=== PATIENT | female | born 2005 | race Caucasian/White ===

== ENCOUNTER 2024-07-18 13:25 | Emergency (ER) | payer OTHER ==
[2024-07-18 13:40] VITALS: RESP 18
--- NOTE | 2024-07-18 13:58 | ED ---
Neuro HPI - General Chief Complaint: Neuro Symptoms/Deficit Stated Complaint: Left eye blurry Time Seen by Provider: 07/18/24 13:55 Source: patient, RN notes reviewed Mode of arrival: ambulatory Limitations: no limitations - History of Present Illness Is the patient presenting with stroke symptoms?: No Initial Comments: 19-year-old female presenting for vision changes of left eye. States she woke up this morning with blurry vision in left eye and foreign body sensation. States she slept with a eye mask last night. [facility] was seen [facility] where they performed a fluorescein stain and discharged her with ophth almology follow-up on Saturday. States when she got home she noticed her left eye was more dilated than her right side which prompted her to come to the ER for further evaluation. She has never had this before. Denies contacts or glasses. Denies headache, fever, lightheadedness, nasal congestion, slurred speech, focal weaknesses. States she has a history of anxiety and bipolar disorder, no other health conditions. - Related Data Allergies/Adverse Reactions: Allergies Allergy/AdvReac Type Severity Reaction Status Date / Time No Known Allergies Allergy Verified 07/18/24 13:36 Review of Systems ROS Statement: Those systems with pertinent positive or pertinent negative responses have been documented in the HPI. ROS Other: All systems not noted in ROS Statement are negative. General Exam Limitations: no limitations General appearance: alert, in no apparent distress Head exam: Present: atraumatic, normocephalic, normal inspection Eye exam: Present: normal appearance, EOMI. Absent: PERRL (Left pupil visibly larger than right pupil. Reacts and accommodates to light bilaterally.), scleral icterus, conjunctival injection, periorbital swelling Pupils: Present: normal accommodation, unequal, other (Negative fluorescein stain, average intraocular pressure 20) ENT exam: Present: normal exam, mucous membranes moist Respiratory exam: Present: normal lung sounds bilaterally. Absent: respiratory distress, wheezes, rales, rhonchi, stridor Cardiovascular Exam: Present: regular rate, normal rhythm, normal heart sounds. Absent: systolic murmur, diastolic murmur, rubs, gallop, clicks Neurological exam: Present: alert, oriented X3, CN II-XII intact Psychiatric exam: Present: normal affect, normal mood Skin exam: Present: warm, dry, intact, normal color. Absent: rash Stroke MDM - Lab Data Result diagrams: 07/18/24 15:01 07/18/24 15:01 Lab Results 07/18/24 07/18/24 07/18/24 Range/Units 15:01 15:01 15:01 WBC 9.9 (4.0-11.0) k/uL RBC 4.60 (3.80-5.40) m/uL Hgb 14.3 (11.4-16.0) gm/dL Hct 42.7 (34.0-46.0) % MCV 92.9 (80.0-100.0) fL MCH 31.0 (25.0-35.0) pg MCHC 33.4 (31.0-37.0) g/dL RDW 11.6 (11.5-15.5) % Plt Count 351 (150-450) k/uL MPV 7.1 Neutrophils % 63 % Lymphocytes % 29 % Monocytes % 5 % Eosinophils % 1 % Basophils % 0 % Neutrophils # 6.3 (1.3-7.7) k/uL Lymphocytes # 2.9 (1.0-4.8) k/uL Monocytes # 0.5 (0-1.0) k/uL Eosinophils # 0.1 (0-0.7) k/uL Basophils # 0.0 (0-0.2) k/uL PT 11.0 (10.0-12.5) sec INR 1.0 (<1.2) APTT 23.2 (22.0-30.0) sec Sodium 139 (137-145) mmol/L Potassium 4.0 (3.5-5.1) mmol/L Chloride 101 (98-107) mmol/L Carbon Dioxide 26 (22-30) mmol/L Anion Gap 12 mmol/L BUN 10 (7-17) mg/dL Creatinine 0.59 (0.52-1.04) mg/dL Est GFR (CKD-EPI)AfAm >90 (>60 ml/min/1.73 sqM) Est GFR (CKD-EPI)NonAf >90 (>60 ml/min/1.73 sqM) Glucose 93 (74-99) mg/dL Calcium 10.1 (8.4-10.2) mg/dL Total Bilirubin 0.9 (0.2-1.3) mg/dL AST 24 (14-36) U/L ALT 18 (4-34) U/L Alkaline Phosphatase 48 (38-126) U/L Total Protein 8.4 H (6.3-8.2) g/dL Albumin 5.2 H (3.5-5.0) g/dL - Medical Decision Making Was pt. sent in by a medical professional or institution ([facility], [employer], urgent care, hospital, or skilled nursing...) When possible be specific @ -No Did you speak to anyone other than the patient for history (EMS, parent, family, police, friend...)? What history was obtained from this source @ -No Did you review nursing and triage notes (agree or disagree)? Why? @ -I reviewed and agree with nursing and triage notes Were old charts reviewed (outside hosp., previous admission, EMS record, old EKG, old radiological studies, urgent care reports/EKG's, skilled nursing records)? Report findings @ -No old charts were reviewed Differential Diagnosis (chest pain, altered mental status, abdominal pain women, abdominal pain men, vaginal bleeding, weakness, fever, dyspnea, syncope, headache, dizziness, GI bleed, back pain, seizure, CVA, palpatations, mental health, musculoskeletal)? @ -Corneal abrasion, corneal ulceration, foreign body, anisocoria, MS, optic neuritis, aneurysm EKG interpreted by me (3pts min.). @ -None X-rays interpreted by me (1pt min.). @ -None done CT interpreted by me (1pt min.). @ -CT/CTA brain negative for acute process U/S interpreted by me (1pt. min.). @ -None done What testing was considered but not performed or refused? (CT, X-rays, U/S, labs)? Why? @ -None What meds were considered but not given or refused? Why? @ -None Did you discuss the management of the patient with other professionals (professionals i.e. [facility], [facility], lab, RT, psych nurse, pediatric social worker, addressograph operator, teacher, quarantine officer, machine adjuster leader case trim)? Give summary @ -No Was smoking cessation discussed for >3mins.? @ -No Was critical care preformed (if so, how long)? @ -No Were there social determinants of health that impacted care today? How? (Homelessness, low income, unemployed, alcoholism, drug addiction, transportation, low edu. Level, literacy, decrease access to med. care, retirement, rehab)? @ -No Was there de-escalation of care discussed even if they declined (Discuss DNR or withdrawal of care, Hospice)? DNR status @ -No What co-morbidities impacted this encounter? (DM, HTN, Smoking, COPD, CAD, Cancer, CVA, ARF, Chemo, Hep., AIDS, mental health diagnosis, sleep apnea, morbid obesity)? @ -None Was patient admitted / discharged? Hospital course, mention meds given and route, prescriptions, significant lab abnormalities, going to OR and other pertinent info. @ -Discharge. This is a 19-year-old female presenting for vision changes of left eye since this morning. Patient states she slept with an eye mask last night and woke up with foreign body sensation and blurriness in left eye. Patient was seen at urgent care where they performed a fluorescein stain and discharged her. States when she got home she noticed her left pupil was larger than her right. No other neurological deficits. Notable anisocoria on examination. Normal ipsilateral and contralateral accommodation to light. Fluorescein stain negative for abrasions or ulcerations. Left intraocular pressure 20. Visual acuity 20/20 right and bilateral, 20/30 left. Lab work unremarkable. CT/CTA brain negative for acute process. Upon reevaluation, anisocoria has resolved. Results discussed with patient. I believe it is safe to discharge patient home as anisocoria has resolved and there is no sign of emergent etiology on workup. Advise close follow-up with ophthalmology on Saturday. Appropriate return precautions discussed. Case was discussed in detail with my ED attending Dr. Campa. Undiagnosed new problem with uncertain prognosis? @ -No Drug Therapy requiring intensive monitoring for toxicity (Heparin, Nitro, Insulin, Cardizem)? @ -No Were any procedures done? @ -No Diagnosis/symptom? @ -Anisocoria Acute, or Chronic, or Acute on Chronic? @ -Acute Uncomplicated (without systemic symptoms) or Complicated (systemic symptoms)? @ -Uncomplicated Side effects of treatment? @ -No Exacerbation, Progression, or Severe Exacerbation? @ -No Poses a threat to life or bodily function? How? (Chest pain, [place], PR, pneumonia, PE, COPD, DKA, ARF, appy, cholecystitis, CVA, Diverticulitis, Homicidal, Suicidal, threat to staff... and all critical care pts) @ -Unlikely at this time Past Medical History Past Medical History: No Reported History Past Surgical History: Ear Surgery Smoking Status: Never smoker Past Alcohol Use History: None Reported Past Drug Use History: None Reported Course Vital Signs 07/18/24 13:36 Temperature 98.3 F Pulse Rate 84 Respiratory 18 Rate Blood Pressure 116/75 O2 Sat by Pulse 97 Oximetry Disposition Clinical Impression: Anisocoria Disposition: HOME SELF-CARE Condition: Stable Additional Instructions: Follow-up with ophthalmology on Saturday as discussed. Please return to the Emergency Department if symptoms worsen or any other concerns. Is patient prescribed a controlled substance at d/c from ED?: No Referrals: None,Stated [Primary Care Provider] - 1-2 days Logan Garnett MD [STAFF PHYSICIAN] - 1-2 days Time of Disposition: 15:57
[2024-07-18] MEDS: ACETAMINOPHEN TAB 325 MG TAB PO STA (14:06)
[2024-07-18] MEDS: PROPARACAINE 0.5% OPHTH DROPS 15 ML BTL LEFT EYE STA (14:06)
[2024-07-18] MEDS: FLUORESCEIN STRIPS 1 MG STRIP LEFT EYE ONE (14:06)
[2024-07-18 15:11] LABS: Basophils % (A) 0 %; Eosinophils # (A) 0.1 k/uL (0-0.7); Eosinophils % (A) 1 %; HCT 42.7 % (34.0-46.0); HGB 14.3 gm/dL (11.4-16.0); Lymphocytes # (A) 2.9 k/uL (1.0-4.8); Lymphocytes % (A) 29 %; MCHC 33.4 g/dL (31.0-37.0); MCV 92.9 fL (80.0-100.0); Mean Platelet Volume 7.1; Monocytes # (A) 0.5 k/uL (0-1.0); Monocytes % (A) 5 %; Neutrophils # (A) 6.3 k/uL (1.3-7.7); Neutrophils % (A) 63 %; Platelet Count 351 k/uL (150-450); RDW 11.6 % (11.5-15.5); WBC 9.9 k/uL (4.0-11.0)
[2024-07-18 15:20] LABS: ALT 18 U/L (4-34); AST 24 U/L (14-36); African American GFR (CKD) >90 (>60 ml/min/1.73 sqM); Albumin 5.2 g/dL (3.5-5.0); Alkaline Phosphatase 48 U/L (38-126); Anion Gap 12 mmol/L; Blood Urea Nitrogen 10 mg/dL (7-17); Calcium 10.1 mg/dL (8.4-10.2); Carbon Dioxide 26 mmol/L (22-30); Chloride 101 mmol/L (98-107); Glucose 93 mg/dL (74-99); Non-African American GFR(CKD) >90 (>60 ml/min/1.73 sqM); Sodium 139 mmol/L (137-145); Total Bilirubin 0.9 mg/dL (0.2-1.3); Total Protein 8.4 g/dL (6.3-8.2)
[2024-07-18 15:31] LABS: Partial Thromboplastin Time 23.2 sec (22.0-30.0)
--- NOTE | 2024-07-18 15:35 | CT ---
EXAMINATION TYPE: CT brain wo con DATE OF EXAM: 07/18/2024 3:20 PM COMPARISON: None. CLINICAL INDICATION: Female, 19 years old with history of Anisocoria, Blurry vision in L eye. L pupil is dilated. Denies headache, dizziness, slurred speech, weakness, or numbness. TECHNIQUE: Brain: Axial CT images of the brain were obtained with coronal and sagittal reformats created and rev iewed. Contrast used: None. Oral contrast used: None. CT DLP: 1173 mGycm, Automated exposure control for dose reduction was used. FINDINGS: Brain: Extra-axial spaces: No abnormal extra-axial fluid collections. Ventricular system: Within normal limits Cerebral parenchyma: No acute intraparenchymal hemorrhage or mass effect. The ojeda-white junction is well differentiated. Cerebellum: Unremarkable. Mass effect: No evidence of midline shift. Intracranial vasculature: unremarkable Soft tissues: Normal. Calvarium/osseous structures: No depressed skull fracture. Paranasal sinuses and mastoid air cells: Mild scattered paranasal sinus disease. Visualized orbits: Orbital contents are intact. IMPRESSION: No acute intracranial process. [facility], , 07/18/2024 3:32 PM
--- NOTE | 2024-07-18 15:39 | CT ---
EXAMINATION TYPE: CT angio [facility] DATE OF EXAM: 07/18/2024 3:26 PM COMPARISON: None. CLINICAL INDICATION: Female, 19 years old with history of anisocoria; PHH, Blurry vision in L eye. L pupil is dilated. Denies headache, dizziness, slurred speech, weakness, or numbness. TECHNIQUE: CT angio C[facility] [place] Axially acquired helical CT angiogram was obtained. Axial im ages are supplemented with 3D reconstructions which were post-processed at an independent workstation . NASCET criteria used. Contrast used:70 ml mL of Isovue 370 with IV Contrast, none CT DLP: 355.6 mGycm, Automated exposure control for dose reduction was used. FINDINGS: Vertebral arteries: The vertebral arteries are patent. Vertebral artery dominance: Codominant Basilar artery: The basilar artery is intact. The basilar artery bifurcation is normal. Internal Carotid arteries: The cervical, petrous, cavernous and supraclinoid segments are normal. PABLO: Patent with no evidence of aneurysm. ACOM: Present without evidence of aneurysm. MCA: Patent with no evidence of aneurysm. TUBE TELLER: Patent with no evidence of aneurysm. PCOM: Hypoplastic bilaterally. Dural sinuses: Patent. IMPRESSION: No evidence of high-grade stenosis or intracranial aneurysm. [facility], , 07/18/2024 3:36 PM
[2024-07-18 16:26] VITALS: BP 116/70; PULSE 69; TEMP 98.1
== END 2024-07-18 16:26 | disposition home or self-care (01) ==
LOC: EC 13:25
DX: H57.02 Anisocoria (principal)
CPT/HCPCS: 36415; 80053; 85025; 85610; 85730; 70496; 70450; 99284; Q9967